=== PATIENT | female | born 1990 | race Caucasian/White ===

== ENCOUNTER 2022-06-16 13:07 | Emergency (ER) | payer OTHER ==
[~2022-06-16] VITALS: Ht 165.1 cm; Wt 63.5 kg
[2022-06-16 13:13] VITALS: BP_SYST 124
[2022-06-16 13:29] LABS: BILIRUBIN,URINE NEGATIVE (NEGATIVE); BLOOD, URINE 2+ (NEGATIVE); COLOR,URINE YELLOW (YELLOW); GLUCOSE,URINE NEGATIVE (NEGATIVE); KETONES,URINE NEGATIVE (NEGATIVE); LEUKOCYTE ESTERASE ,URINE NEGATIVE (NEGATIVE); NITRITE, URINE NEGATIVE (NEGATIVE); PROTEIN URINE NEGATIVE (NEGATIVE); UROBILINOGEN,URINE 0.2 (0.2-1.0)
[2022-06-16 13:30] LABS: CLARITY/URINE CLOUDY (CLEAR)
--- NOTE | 2022-06-16 13:41 | NUR ---
TAKEN TO RADIOLOGY VIA WHEELCHAIR FROM WAITING ROOM.
--- NOTE | 2022-06-16 13:50 | NUR ---
Pt with lab obtaining blood sampling. Pt tolerated well.
[2022-06-16 13:52] LABS: BASOPHILS % (AUTO) 0.3 % (0.0-2.0); EOSINOPHILS # (AUTO) 0.1 K/uL (0.0-0.4); EOSINOPHILS % (AUTO) 0.6 % (0.0-4.0); HEMATOCRIT 38.3 % (36-48); HEMOGLOBIN 13.2 g/dL (12.0-16.0); LYMPHOCYTES # (AUTO) 1.6 K/uL (1.0-5.5); LYMPHOCYTES % (AUTO) 17.1 % (20.5-51.5); MEAN CORPUSCULAR HEMOGLOBIN 30 pg (27-31); MEAN CORPUSCULAR HGB CONC 35 % (32-36); MEAN CORPUSCULAR VOLUME 87 fL (79.0-98.0); MONOCYTES # (AUTO) 0.5 K/uL (0.0-1.0); MONOCYTES % (AUTO) 4.8 % (1.7-9.3); NEUTROPHILS # (AUTO) 7.3 K/uL (1.8-7.7); NEUTROPHILS % (AUTO) 77.2 % (40.0-70.0); PLATELET COUNT (AUTO) 330 K/uL (130-430); RED BLOOD CELL COUNT(AUTO) 4.42 MIL/uL (4.2-6.2); RED CELL DISTRIBUTION WIDTH 14.1 % (9.0-15.0); WHITE BLOOD COUNT (AUTO) 9.4 K/uL (4.8-10.8)
[2022-06-16 14:02] LABS: BACTERIA,URINE FEW /HPF (None Seen); WBC,URINE NONE SEEN /HPF (0-3)
[2022-06-16 14:07] LABS: CALCIUM 8.2 mg/dL (8.4-11.0); CREATININE 0.79 mg/dL (0.55-1.30); POTASSIUM 3.3 mmol/L (3.5-5.1)
[2022-06-16 14:15] LABS: TOTAL BILIRUBIN 0.3 mg/dL (0.0-1.0)
--- NOTE | 2022-06-16 14:23 | NUR ---
Pt returns to room 7 for ER intake. NAD.
--- NOTE | 2022-06-16 14:23 | NUR ---
Yuliet bell in [facility] - 06/16/22 at 1423 by [email or web address] Patient to [facility] to for evaluation. Side rails up.
--- NOTE | 2022-06-16 14:24 | NUR ---
Pt brought by self, A&OX4, pt is 16 weeks , c/o vaginal bleeding since yesterday, skin pink and warm, respirations even and unlabored, cap refill <3, denies N/V, will cont to monitor.
--- NOTE | 2022-06-16 14:26 | NUR ---
Pt presents to the ER bib spouse. CC vaginal bleeding R/T 16 week .AAOx4, Pt states in the restroom this AM noted tissue fragments and blood. Pt denies N/V, pt abdomen is tender to touch. Pt denies pain. Bleeding began on 06/11/22 with scant amount of bleeding, this am one pad was used for vaginal bleed. LMP: 02/23/2022
--- NOTE | 2022-06-16 14:32 | NUR ---
ER at bedside examining patient.
[2022-06-16 14:47] VITALS: BP_SYST 114
--- NOTE | 2022-06-16 14:48 | NUR ---
Patient given written and verbal discharge instructions and verbalizes understanding. ER MD discussed with patient the results and treatment provided. Patient in stable condition. ID arm band removed. No Rx given. Patient educated on pain management and to follow up with PMD. Pain Scale 0/10. Opportunity for questions provided and answered. Medication side effect fact sheet provided.
== END 2022-06-16 14:48 | disposition home or self-care (01) ==
LOC: SED 13:07
DX: O20.0 Threatened abortion (principal); Z3A.16 16 weeks gestation of pregnancy
CPT/HCPCS: 36415; 76805-TC; 80053; 81000; 85025; 86901; 99284